=== PATIENT | female | born 1980 | race Two or more races ===

== ENCOUNTER 2017-11-14 10:38 | Emergency (ER) | payer OTHER, MEDICAID ==
[~2017-11-14] VITALS: Ht 162.6 cm; Wt 69.8 kg
[2017-11-14 10:57] VITALS: Ht 162.6 cm; Wt 69.8 kg
[2017-11-14 14:16] VITALS: BP 102/69
== END 2017-11-14 14:16 | disposition home or self-care (01) ==
LOC: ED 10:38
DX: F41.9 Anxiety disorder, unspecified (principal)

== ENCOUNTER 2017-12-04 12:12 | Emergency (ER) | payer OTHER, MEDICAID ==
[~2017-12-04] VITALS: Ht 175 cm; Wt 59.4 kg
[2017-12-04 12:42] VITALS: Ht 175 cm; Wt 59.4 kg
[2017-12-04 14:31] VITALS: BP 103/67
== END 2017-12-04 14:31 | disposition home or self-care (01) ==
LOC: ED 12:12
DX: S39.012A Strain of muscle, fascia and tendon of lower back, initial encounter (principal); F41.9 Anxiety disorder, unspecified; W18.39XA Other fall on same level, initial encounter; Y93.E8 Activity, other personal hygiene; Y92.091 Bathroom in other non-institutional residence as the place of occurrence of the external cause; Y99.8 Other external cause status
CPT/HCPCS: J1885; J3010; Q0162

== ENCOUNTER → 2018-03-25 | Outpatient (CLI) | payer OTHER ==
[2018-03-25 09:51] LABS: BASOPHIL % 0.6 % (0-2); PLATELET COUNT 213 x10^3mcL (130-400); RED CELL DISTRIBUTION WIDTH 12.8 % (11.5-14.5)
[2018-03-25 10:18] LABS: ALBUMIN 3.7 g/dL (3.4-5.0); ALKALINE PHOSPHATASE 47 U/L (46-116); ALT/SGPT 28 U/L (14-59); AST/SGOT 19 U/L (15-37); BILIRUBIN TOTAL 0.62 mg/dL (0.20-1.00); CALCIUM 9.3 mg/dL (8.5-10.1); CARBON DIOXIDE 30.7 mmol/L (21-32); CHLORIDE SERUM 105 mmol/L (98-107); CREATININE SERUM 0.6 mg/dL (0.6-1.0); GFR1 > 60 mL/min; GLUCOSE SERUM 105 mg/dL (74-106); POTASSIUM SERUM 4.4 mmol/L (3.5-5.1); SODIUM SERUM 139 mmol/L (136-145); TOTAL PROTEIN, SERUM 7.3 g/dL (6.4-8.2)
[2018-03-25 10:39] LABS: TRIGLYCERIDES 57 mg/dL (<150)
[2018-03-25 10:40] LABS: CHOLESTEROL 145 mg/dL (<200); CHOLESTEROL/HDL RATIO 2.9; HDL CHOLESTEROL 50 mg/dL (40-60)
== END | disposition home or self-care (01) ==
LOC: RD 09:08
PROVIDERS: Student in an Organized Health Care Education/Training Program
DX: R05 Cough (principal)
CPT/HCPCS: 86480

== ENCOUNTER → 2018-04-18 | Outpatient (CLI) | payer OTHER | END | disposition home or self-care (01) | LOC: LB 12:20 | DX: Z20.1 Contact with and (suspected) exposure to tuberculosis (principal) ==

== ENCOUNTER → 2019-10-30 | Outpatient (CLI) | payer OTHER ==
[2019-10-30 08:31] LABS: BASOPHIL % 0.5 % (0-2); PLATELET COUNT 192 x10^3mcL (130-400); RED CELL DISTRIBUTION WIDTH 12.9 % (11.5-14.5)
[2019-10-31 04:06] LABS: RAPID PLASMA REAGIN Non Reactive (Non Reactive)
== END | disposition home or self-care (01) ==
LOC: LB 07:42
DX: Z34.90 Encounter for supervision of normal pregnancy, unspecified, unspecified trimester (principal)